=== PATIENT | male | born 1980 | race Caucasian/White ===

== ENCOUNTER 2016-07-01 06:27 | Outpatient (CLI) | payer OTHER | END 2016-07-01 06:28 | disposition home or self-care (01) | DX: Z13.220 Encounter for screening for lipoid disorders (principal) ==

== ENCOUNTER 2019-12-22 14:44 | Outpatient (CLI) | payer BC ==
--- NOTE | 2019-12-22 15:14 | SLEEP CARE CONSULTATION ---
Information from patient questionnaire entered by Paulette Carlin. I have reviewed and concur with the information entered by Paulette Carlin. This document represents the service I personally performed and the decisions made by me, Timothy Espinosa MD, [facility]. History of Present Illness Service Date and Time: 12/22/2019 1444 Reason for Visit: New patient Chief Complaint: reports: Snoring Date of Onset: forever Usual bedtime: 10pm Time it takes to fall asleep: 10-15 minutes Snores at night: Yes Observed to quit breathing while asleep: Yes (a few seconds) Sleeps alone due to snoring: No Number of times waking at night: 1-4 Reasons for waking at night: reports: Bathroom, Other (ususally feeling hot or uncomfortable and or bathroom 2-3 times) Toss, Turn, or Twitch while sleeping: No (more so changing postioions every hour or two) Recalls having dreams: Yes (sometimes, rarely) Usually gets out of bed at: 7:30 - 8 am Feels refreshed in the morning: No (sometimes more than others) Morning headache: No Sleepy or fatigued during the day: Yes (usually by the afternoon) Ever fallen asleep while driving: Yes (not in recent years) Takes day naps: Yes (when it's convenient) Dreams during day naps: Yes Prior sleep studies: No Additional HPI information: I had the pleasure of seeing Mr. Foster today regarding the possibility of him having a sleep disorder. As you know, he is a 39-year-old gentleman who complains of loud snore. His saw him quit breathing briefly once. The patient tells me that he normally goes to bed around 10 pm, and it takes him approximately 10 - 15 minutes to fall asleep. His sleeps in the same bed. He can recall waking up on the average of 1 - 4 times during the night. Most of the time he wakes up because of having to use the bathroom. He has never awakened because of his own snoring, choking, and having to gasp for air. There is a lot of tossing and turning in his sleep. No somniloquy (sleep talking) or somnambulism (sleep walking). Generally, he can recall having dreams. In the morning he usually gets up out of the bed around 7:30 - 8 a.m. occasionally not feeling refreshed or rested. He usually does not have a morning headache. During the day he complains of feeling sleepy and fatigued. His score on [place] Sleepiness Scale is 8 out of 24. He has never fallen asleep while driving nor has had any accident due to sleepiness. He usually takes naps during the day. Upon falling asleep during the day he reports having dreams. He reports having impaired concentration during the day. 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 Patient is and lives in [place]. Have you smoked in the past 12 months: No Alcohol use: Yes Alcohol amount and frequency: 1 drink about once a week Caffeine use: Yes Caffeine amount and frequency: 1-4 cups of strong black tea Allergies and Home Medications Drug allergies reviewed: Yes (none) Home medication list reviewed: Yes (none) Review of Systems Cardiovascular: denies: high blood pressure, palpitations, chest pain, irregular heart rate or pulse, leg or foot swelling, have to sleep sitting up, other Respiratory: denies: shortness of breath, wheeze, sputum production, chronic cough, other Gastrointestinal: denies: heartburn, difficulty swallowing, nausea, vomitting, diarrhea, abdominal pain, other Urinary: denies: incontinence, frequency, urgency, impotence, other Neurological: denies: headaches, seizure, head trauma, disorientation, speech dysfunction, gait or balance problems, fainting or unconsciousness, other Psychiatric: denies: Attention Deficit Hyperactivity, anxiety, depression, mood disorder, claustrophobia, other Ear/Nose/Throat: reports: wisdom teeth removed. denies: nasal congestion, sinus problems, nose bleeds, dry mouth/throat, hoarseness, injury to nose, tonsillectomy, other Endocrine: reports: too hot or cold (hot), increased appetite Musculoskeletal: denies: joint pain, neck pain, back pain, joint swelling, muscle pain or cramping, mobility problems, other Physical Exam Vital signs obtained and entered by: Detailed physical exam was not performed to comply with the COVID-19 precau Height: 6 ft 5 in Weight: 215 lb Body Mass Index: 25.4 BMI Classification: Overweight Impression and Plan IMPRESSION: 1. Possible Obstructive Sleep Apnea-Hypopnea Syndrome, as suggested by history of loud and irregular snoring, observed cessation of breath while asleep, frequent awakenings during the night, and daytime hypersomnolence. Pathophysiology of sleep-disordered breathing was discussed. I recommend proceeding to polysomnography to confirm the diagnosis and to assess severity. Plan: 1. A home sleep apnea test (HSAT) was ordered because he has [employer]. 2. Return in 1 to 2 weeks after the study to discuss results and initiate therapy. 3. Brochures on Coping with Shift Work, Better Sleep, and Sleep-diordered Breathing given to him. Visit Type: In Office Time Spent with Patient (minutes): 15 Provider Statement: I spent 100% of the Face to Face Visit with the patient with greater than 50% spent counseling the patient and coordination of care.
== END 2019-12-22 14:45 | disposition home or self-care (01) ==
LOC: SC 14:44
PROVIDERS: ATTEND Internal Medicine Pulmonary Disease
DX: R06.83 Snoring (principal); R06.81 Apnea, not elsewhere classified
CPT/HCPCS: 99203; 99212

== ENCOUNTER 2020-02-09 12:25 | Outpatient (CLI) | payer BC | END 2020-02-09 12:26 | disposition home or self-care (01) | LOC: SC 12:25 | PROVIDERS: ATTEND Internal Medicine Pulmonary Disease | DX: G47.33 Obstructive sleep apnea (adult) (pediatric) (principal); R09.02 Hypoxemia | CPT/HCPCS: 95806 ==

== ENCOUNTER 2020-02-17 08:11 | Outpatient (CLI) | payer BC ==
[2020-02-17 08:28] LABS: BASOPHILS % (AUTO) 0.8 %; EOSINOPHILS # (AUTO) 0.1 10^3/uL (0.0-0.7); EOSINOPHILS % (AUTO) 3.6 %; HGB - HEMOGLOBIN 14.5 g/dL (14.0-18.0); LYMPHOCYTES # (AUTO) 1.3 10^3/uL (1.5-3.5); LYMPHOCYTES % (AUTO) 34.1 %; MEAN CORPUSCULAR HEMOGLOBIN 30.1 pg (27.0-31.0); MEAN CORPUSCULAR HGB CONC 33.3 g/dL (32.0-36.0); MEAN CORPUSCULAR VOLUME 90.4 fL (80.0-94.0); MEAN PLATELET VOLUME 11.2 fL (7.4-11.4); MONOCYTES # (AUTO) 0.5 10^3/uL (0.0-1.0); MONOCYTES % (AUTO) 11.9 %; NEUTROPHILS # (AUTO) 1.9 10^3/uL (1.5-6.6); NEUTROPHILS % (AUTO) 49.3 %; PLT - PLATELET COUNT 162 10^3/uL (130-450); RED BLOOD COUNT 4.81 10^6/uL (4.70-6.10); RED CELL DISTRIBUTION WIDTH 12.3 % (12.0-15.0); WHITE BLOOD COUNT 3.9 x10^3/uL (4.8-10.8)
[2020-02-17 09:16] LABS: ALBUMIN 4.2 g/dL (3.2-5.5); ALBUMIN/GLOBULIN RATIO 1.3 (1.0-2.2); ALKALINE PHOSPHATASE 59 IU/L (42-121); ALT ALANINE AMINOTRANSFERASE 24 IU/L (10-60); AST ASPARTATE AMINOTRANSFERASE 23 IU/L (10-42); BILIRUBIN,TOTAL 0.8 mg/dL (0.2-1.0); BUN - BLOOD UREA NITROGEN 15 mg/dL (6-20); CALCIUM 9.5 mg/dL (8.5-10.3); CARBON DIOXIDE - CO2 27 mmol/L (21-32); CHLORIDE 101 mmol/L (101-111); CHOL/HDL RATIO 4.2 (<5.0); CHOLESTEROL 193 mg/dL; CREATININE 0.9 mg/dL (0.6-1.2); GLUCOSE 104 mg/dL (70-100); HDL CHOLESTEROL 46 mg/dL; LDL CHOLESTEROL,CALCULATED 136 mg/dL; SODIUM 137 mmol/L (135-145); TOTAL PROTEIN 7.5 g/dL (6.7-8.2); VLDL CHOLESTEROL 11 mg/dL
== END 2020-02-17 08:12 | disposition home or self-care (01) ==
LOC: LAB 08:11
PROVIDERS: ATTEND Physician Assistant
DX: Z00.00 Encounter for general adult medical examination without abnormal findings (principal)
CPT/HCPCS: 36415; 80053; 80061; 83721; 84443; 85025

== ENCOUNTER 2020-02-19 12:15 | Outpatient (CLI) | payer BC ==
--- NOTE | 2020-02-19 11:00 | SLEEP CARE CONSULTATION ---
Information from patient questionnaire entered by Paulette Carlin. I have reviewed and concur with the information entered by Paulette Carlin. This document represents the service I personally performed and the decisions made by me, Azra Martinez, RN, MSN, [employer]. History of Present Illness Service Date and Time: 02/19/2020 1030 Initial Crum Sleepiness Scale score: 8 (in 2019) Additional HPI information: NADIA GREENBERG returns for follow up and results of the recently performed home sleep study. I explained the pathophysiology behind obstructive sleep apnea. We then spent quite a bit of time discussing different treatment options. For mild obstructive sleep apnea, surgery and oral appliance are alternatives to nasal CPAP therapy but in moderate or severe cases, nasal CPAP is the most effective and reliable treatment. Because apnea is primarily in supine position, then positional management therapy could be effective. Methods discussed such as positioning with pillows, using a T-shirt with tennis balls in the back, and shown commercial products that have a pillow format on back to prevent supine sleep. I reviewed the impact of weight changes on sleep apnea and strongly recommended losing weight. After some discussion, the patient opted to go with the oral appliance ( advanced mandibular device) therapy. Risks of jaw pain and displacement discussed. Patient to notify dentist if this occurs during treatment. [facility] patient education and Non Pap treatment pamphlet will be sent to patient. Follow up process discussed to check efficacy of treatment. Patient counseled not drink alcohol less than 4 hours before bedtime as it can increase snoring and apnea. Patient was cautioned about risks of drowsy driving until sleepiness symptoms resolve. Patient denies drowsy driving. [facility] patient education on snoring and sleep apnea given at prior visit per note. Declined verbal review of Crum scale - states no change since last visit. Sleep Study - Results Type of Sleep Study: Home sleep study Prior sleep studies: No Polysomnography/Home Sleep Study results: Physician Impression: The quality of the study is fair due to partial loss of airflow signal.. The length of the study is adequate (> 240 minutes). Please also see the tabulated and graphic data. 1. Obstructive Sleep Apnea-Hypopnea (ICD-10 G47.33), mild, with an AHI of 7.1/hr and rogelio SaO2 of 87%. During the study, the patient had 42 apneas (42 obstructive, 0 central, 0 mixed) and 5 hypopneas. The longest episode lasted 57.5 seconds. The respiratory events occurred almost exclusively during supine sleep (supine AHI was 10.1 and non-supine, 4.64). 2. Hypoxemia (ICD-10 R09.02), minimal, with the lowest oxygen saturation of 87 % and 0.7 minutes with SaO2 under 90%. Baseline oxygen saturation was normal (Average oxygen saturation was 95%). Allergies and Home Medications Home medication list reviewed: No (states no medications) Review of Systems Review of systems same as previous: Yes (states no changes ) Physical Exam Height: 6 ft 5 in Impression and Plan 1. Obstructive Sleep Apnea-Hypopnea Syndrome, mild, with lowest oxygen saturation of 87%. Possibly this is the cause of the patients symptoms of unrefreshed sleep, and excessive daytime sleepiness. As mentioned above, the patient chose an oral appliance to treat their apnea. A 3 month follow up will be made to see if appliance has reduced symptoms. If so, another polysomnography will be ordered with use of the oral appliance to check efficacy in reducing apnea. Until patient is able to use the oral appliance, positional therapy is advised to avoid supine sleep with pillow positioning or one of the commercial products because apnea is more severe supine. A list of [employer]AS accredited dentists in the area and [facility] NonPap treatment pamphlet and prescription for oral appliance will be sent in mail by this office. * prescription for oral appliance. * Attempt to lose weight. * Avoid alcohol consumption near bedtime * The patient is again cautioned about driving until sleepiness completely resolves. * Return 3 months, I will assess response to therapy and compliance at that time. Visit Type: Telehealth Video Video Type: Doximity Patient Location: Home Location of Provider: Home Patient agrees and consents to this telehealth visit type: Yes Patient agrees to have their insurance billed: Yes Time Spent with Patient (minutes): 17 Provider Statement: I spent 100% of the Telehealth Video Call with the patient with greater than 50% spent counseling the patient and coordination of care.
== END 2020-02-19 12:16 | disposition home or self-care (01) ==
LOC: SC 12:15
PROVIDERS: ATTEND Nurse Practitioner Family
DX: G47.33 Obstructive sleep apnea (adult) (pediatric) (principal); R09.02 Hypoxemia